=== PATIENT | female | born 1940 | race Caucasian/White ===

== ENCOUNTER 2017-11-10 20:54 | Emergency (ER) | payer SELFPAY ==
[~2017-11-10] VITALS: Ht 167.6 cm; Wt 90.0 kg
[2017-11-10] MEDS ORDERED: ACETAMINOPHEN 325MG TABLET PO ONE (21:45)
[2017-11-10] MEDS ORDERED: LEVOFLOXACIN 750MG PREMIX 150 ML IV ONE (21:45)
[2017-11-10] MEDS ORDERED: OSELTAMIVIR 75MG CAPSULE PO ONE (21:45)
[2017-11-10] MEDS ORDERED: CLONIDINE 0.2MG TABLET PO ONE (21:45)
[2017-11-10 22:14] LABS: BASOPHILS % 0.1 % (0.0-2.0); EOSINOPHILS % 0.1 % (0.0-5.0); HEMATOCRIT. 39.7 % (36.0-48.0); HEMOGLOBIN. 13.1 g/dL (12.0-16.0); LYMPHOCYTES % 8.3 % (20.0-50.0); MEAN CORPUSCULAR HEMOGLOBIN 29.2 pg (28.0-32.0); MEAN CORPUSCULAR VOLUME 88.6 fL (81.0-99.0); MEAN PLATELET VOLUME 8.7 fl (7.4-10.4); MONOCYTES % 2.9 % (2.0-8.0); NEUTROPHILS % 88.6 % (40.0-76.0); PLATELET 244 x1000/uL (130-400); RED BLOOD CELL COUNT 4.48 mill/uL (4.2-5.4); RED CELL DISTRIBUTION WIDTH 14.6 % (11.6-14.6)
[2017-11-10 22:24] LABS: INR 1.1; PARTIAL THROMBOPLASTIN TIME 26.8 sec (23.4-31.0); PROTHROMBIN TIME 10.9 sec (9.4-11.6)
[2017-11-10 22:26] LABS: CHLORIDE 95 mEq/L (98-107)
[2017-11-10] MEDS ORDERED: ASPIRIN 325MG EC TABLET PO ONE (23:45)
[2017-11-11] MEDS ORDERED: IOHEXOL-350 100 ML BOTTLE ONE (02:31)
[2017-11-11 02:45] VITALS: BP 154/87
[2017-11-11] MEDS ORDERED: SODIUM CHLORIDE 0.45% 1,000 ML IV SCH (09:34)
[2017-11-11] MEDS ORDERED: HYDROCODONE/ACETAMINOPHEN 5/325MG TABLET PO PRN (09:45)
[2017-11-11] MEDS ORDERED: GUAIFENESIN 200MG/10ML SUGAR FREE UDC PO PRN (09:45)
[2017-11-11] MEDS ORDERED: MAGNESIUM/ALUMINUM HYDROXIDE/SIMETHICONE 30ML UDC PO PRN (09:45)
[2017-11-11] MEDS ORDERED: IPRATROPIUM/ALBUTEROL 0.5-3(2.5)MG/3ML NEB INH PRN (09:45)
[2017-11-11] MEDS ORDERED: CLONIDINE 0.1MG TABLET PO PRN (09:45)
[2017-11-11] MEDS ORDERED: DOCUSATE SODIUM 100MG CAPSULE PO PRN (09:45)
[2017-11-11] MEDS ORDERED: DIPHENHYDRAMINE 50MG/ML VIAL IV PRN (09:45)
[2017-11-11] MEDS ORDERED: ONDANSETRON HCL 4MG/2ML VIAL IV PRN (09:45)
[2017-11-11] MEDS ORDERED: ENOXAPARIN 40MG/0.4ML SYR SUBCUT SCH (09:45)
[2017-11-11] MEDS ORDERED: LORAZEPAM 0.5MG TABLET PO PRN (19:00)
[2017-11-11] MEDS ORDERED: HYDROMORPHONE HCL/PF 2MG/ML CPJ IV PRN (21:00)
[2017-11-11] MEDS ORDERED: NA PHOS,M-B/NA PHOS,DI-BA ENEMA 118ML PR PRN (21:00)
[2017-11-12] MEDS ORDERED: ASPIRIN 81MG EC TABLET PO SCH (09:00)
== END 2017-11-11 03:14 | disposition left against medical advice (07) ==
LOC: ER 20:54 → EDBEDREQTM 11-11 02:18 → EDBEDREQ 11-11 02:18 → EDBEDREQSVC 11-11 02:18 → ER 11-11 03:14 → CANBEDREQ 11-11 09:33
DX: G93.41 Metabolic encephalopathy (principal); E86.0 Dehydration; R06.02 Shortness of breath; I50.9 Heart failure, unspecified; J18.9 Pneumonia, unspecified organism
CPT/HCPCS: 36415; 70450; 71045; 71275; 80053; 83605; 83880; 84484; 85025; 85610; 85730; 86850; 86900; 86901; 87040; 87804; 93005; 93970; 96365; 99285; J1956; Q9967; Z7610